=== PATIENT | female | born 1970 | race Caucasian/White ===

== ENCOUNTER 2018-04-19 08:54 | Emergency (ER) | payer OTHER ==
[~2018-04-19] VITALS: Ht 157.5 cm; Wt 82.8 kg
[~2018-04-19 08:54] MED LIST: ADVAIR 500/501 DISK IH; ALBUTEROL17 GM IH; AMOXIL500 MG PO; BACTRIM,SEPT1 TABLET PO; ERYTHROMYCIN O3.5 GM BOTH EYES; KEFLEX500 MG PO; Methadone PO; NAPROXEN500 MG PO; OXYCODONE HCL5 MG PO; PEN-VEE K,VEET500 MG PO; PERCOCET 5/31 TABLET PO; QUETIAPINE FUM100 MG PO; ROXICODONE5 MG PO; VENTOLIN HFA18 GM IH; VYVANSE50 MG PO
[2018-04-19 10:09] LABS: HEMATOCRIT 38.2 % (36.0-46.0); HEMOGLOBIN 13.2 G/DL (11.9-15.5); MCH 31.3 PG (29.0-34.0); MCHC 34.6 G/DL (30.0-36.0); MCV 90.5 FL (83-99); PLATELET COUNT 303 K/uL (156-360); RBC DIS.WIDTH-CV 12.3 % (11.8-14.6); RBC DIS.WIDTH-SD 40.3 % (39-53); RED BLOOD COUNT 4.22 M/uL (3.80-5.20)
[2018-04-19 10:19] LABS: ALBUMIN 3.8 g/dL (3.2-4.8); CHLORIDE 102 mEq/L (99-109); POTASSIUM 3.9 mEq/L (3.7-5.4); SODIUM 139 mEq/L (136-147)
[2018-04-19 10:21] LABS: GLUCOSE 87 mg/dL (70-99); TOTAL PROTEIN 6.7 g/dL (6.4-8.3)
[2018-04-19 10:23] LABS: TOTAL BILIRUBIN 0.3 mg/dL (0.0-1.0)
[2018-04-19 10:25] LABS: ALKALINE PHOSPHATASE 51 IU/L (3-129); CREATININE 0.7 mg/dL (0.6-1.3); GFR ESTIMATE (CALCULATED) > 59 mL/min/
[2018-04-19 10:26] LABS: UREA NITROGEN (BUN) 8 mg/dL (9-23)
[2018-04-19 10:27] LABS: AST (GOT) 16 IU/L (2-34)
[2018-04-19 10:28] LABS: ALT (GPT) 16 IU/L (3-49)
[2018-04-19 10:32] LABS: TROP-I INTERPRETATION NEGATIVE; TROPONIN-I < 0.01 ng/mL (0.0-0.30)
[2018-04-19] MEDS ORDERED: FLONASE16 G1 BOTH NARES (15:15)
[2018-04-19] MEDS ORDERED: ZYRTEC10 M2 PO (15:15)
[2018-04-19] MEDS ORDERED: PREDNISONE20 MG PO (15:15)
[2018-04-19] MEDS ORDERED: ALBUTEROL2.5 MG/3 M IH (15:18)
[2018-04-19 15:47] VITALS: BP 114/87
== END 2018-04-19 16:03 | disposition home or self-care (01) ==
LOC: EME 08:54
PROVIDERS: Nurse Practitioner Family
DX: J45.901 Unspecified asthma with (acute) exacerbation (principal); J34.89 Other specified disorders of nose and nasal sinuses; G43.909 Migraine, unspecified, not intractable, without status migrainosus; F41.9 Anxiety disorder, unspecified; F32.9 Major depressive disorder, single episode, unspecified; Z79.891 Long term (current) use of opiate analgesic; Z79.51 Long term (current) use of inhaled steroids
CPT/HCPCS: 71046; 80053; 84484; 85027; 93005; 94640; 94640 76; 99281; 99285; J3475; J7512